=== PATIENT | male | born 1960 | race Two or more races ===

== ENCOUNTER 2021-11-02 07:10 | Emergency (ER) | payer OTHER, SELFPAY ==
--- NOTE | ~2021-11-02 | CT_ITS ---
EXAMINATION: CT CHEST, ABDOMEN AND PELVIS WITH CONTRAST CLINICAL INFORMATION: Epigastric pain COMPARISON: None. TECHNIQUE: Multidetector volumetric CT imaging of the chest, abdomen, and pelvis was performed after the administration of 100 mL of Omnipaque 300 intravenous contrast without immediate adverse reactions. Axial MIP volume rendering provided. Sagittal and coronal reformatted images were obtained. DLP: 1525 mGy-cm. FINDINGS: CHEST: LUNGS/PLEURA: Respiratory motion artifact slightly limits evaluation. No focal consolidation. No pneumothorax. Mild bibasilar atelectasis. Central airways are patent. No large pleural effusion. MEDIASTINUM: Heart is not enlarged. No pericardial effusion. Coronary calcifications are noted. Aorta is nonaneurysmal. Main pulmonary artery is not enlarged. No enlarged lymph nodes per size criteria. Multiple subcentimeter paratracheal, precarinal, and periaortic lymph nodes are noted, not enlarged per size criteria. Visualized portions of the thyroid are unremarkable. AXILLA: No lymphadenopathy. ABDOMEN AND PELVIS: LIVER, GALLBLADDER, AND BILIARY TREE: The liver is normal in size and shape. Slightly decreased hepatic attenuation suggesting hepatic steatosis with regions of focal fatty sparing adjacent to the gallbladder fossa. No focal hepatic lesion or biliary ductal dilatation is present. The gallbladder is unremarkable with no evidence of radiopaque gallstones, gallbladder wall thickening, or obvious pericholecystic inflammatory changes. PANCREAS: Unremarkable. SPLEEN: Unremarkable. ADRENAL GLANDS: Unremarkable. KIDNEYS AND URETERS: 5 mm calculus in the left renal pelvis with very slight stranding of the left proximal ureter at the level of the ureteral pelvic junction. No appreciable hydronephrosis. No right-sided nephrolithiasis or hydronephrosis. BLADDER: Unremarkable. GASTROINTESTINAL TRACT: Colonic diverticulosis without acute diverticulitis. Small hiatal hernia. The small and large bowel are unremarkable. The appendix is unremarkable. ABDOMINAL WALL: Fat filled umbilical hernia. Fat filled right inguinal hernia. LYMPH NODES: No enlarged lymph nodes per size criteria. VASCULAR: Abdominal aorta is nonaneurysmal. Atherosclerotic aspirations of the abdominal aorta and its branches. PELVIC VISCERA: Prostate measures 3.6 cm in greatest dimension with coarse calcifications within its body. OSSEOUS STRUCTURES: Osteopenia. Multilevel degenerative changes of the thoracolumbar and lumbosacral spine. No large lytic or blastic lesions are noted. Degenerative changes of the right sacroiliac joint. CT/CT abdomen pelvis w con IMPRESSION: 1. 5 mm calculus in the left renal pelvis with very slight stranding of the left proximal ureter at the level of the ureteral pelvic junction. No appreciable hydronephrosis. 2. Slightly decreased hepatic attenuation suggesting hepatic steatosis with regions of focal fatty sparing adjacent to the gallbladder fossa. 3. Colonic diverticulosis without acute diverticulitis. 4. Small hiatal hernia. 5. Osteopenia.
[2021-11-02 07:17] VITALS: BP 190/91; PULSE 90; RESP 16; TEMP 36.8; O2SAT 97; BMI 40.8
--- NOTE | 2021-11-02 07:59 | ED_ITS ---
HPI - Abdominal Pain General Chief Complaint: Abdominal Pain Stated Complaint: severe abd pain since 5am Time Seen by Provider: 11/02/21 07:59 Source: patient Mode of arrival: ambulatory Limitations: no limitations History of Present Illness HPI narrative: Patient is a 61 year old male presenting to the emergency department today with epigastric pain. Patient states that he has been having epigastric abdominal pain for the last few hours. Patient describes the pain as a burning sensation. Patient denies any dizziness, lightheadedness, nausea, vomiting, fever, chills, blurry vision, double vision, loss of vision, chest pain, difficulty breathing, shortness of breath, back pain, night sweats, pain with urination, increased urinary frequency, increased urinary urgency, blood in his urine or stool, syncope or a near syncopal episode, recent trauma or falls, bowel incontinence, bladder incontinence, bowel retention, bladder retention, or any other complaints at this time. MD elicited complaint: abdominal pain Pertinent past history: none Onset (ago): hour(s) Pain Consistency: constant and now resolved Location: epigastric Severity: mild Pain scale (0-10): 3 Quality: burning Radiation: none Migration to: no migration Exacerbating factors: nothing Relieving factors: nothing Associated symptoms: denies other symptoms Related Data Allergies Allergy/AdvReac Type Severity Reaction Status Date / Time No Known Allergies Allergy Verified 11/02/21 07:16 Review of Systems Constitutional: Reports no additional constitutional complaints, Denies chills, Denies fever(s) and Denies night sweats Eyes: Reports no additional eye complaints, Denies blurry vision, Denies change in vision, Denies diplopia, Denies eye discharge, Denies loss of vision and Denies eye pain Denies dizziness Cardiovascular: Reports no additional cardiovascular complaints, Denies chest pain, Denies lightheadedness, Denies Loss of Consciousness and Denies dyspnea Respiratory: Reports no additional respiratory complaints and Denies dyspnea Gastrointestinal: Reports no additional gastrointestinal complaints, Reports abdominal pain, Denies melena, Denies hematochezia, Denies change in bowel habits and Denies change in stool character Genitourinary: Reports no additional male genitourinary complaints, Denies hematuria, Denies oliguria, Denies difficulty urinating, Denies dysuria, Denies urinary frequency, Denies urinary hesitancy, Denies urinary incontinence and Denies urinary urgency Musculoskeletal: Reports no additional musculoskeletal complaints, Denies numbness and Denies tingling Denies dizziness, Denies loss of vision, Denies numbness and Denies tingling Psychiatric: Reports no additional psychiatric complaints Endocrine: Reports no additional endocrine complaints Hematologic/Lymphatic: Reports no additional hematologic/lymphatic complaints Allergic/Immunologic: Reports no additional allergic/immunologic complaints COUNTS INCLUDE 234 BEDS AT THE [facility] Past Medical History Attestation statement: The following information was validated with the patient. Source: old records reviewed Medical History No known health problems Social History Social History Alcohol intake: never Patient Tobacco Use Status: Never used Tobacco Physical Exam ED Vital Signs: Vital Signs - 24 hr 11/02/21 07:17 11/02/21 08:24 11/02/21 09:23 Temperature 98.2 F 99.3 F Pulse Rate 90 87 79 Respiratory Rate 16 18 18 Blood Pressure 190/91 H 181/105 H 175/91 H Pulse Oximetry 97 97 97 11/02/21 10:44 Temperature 98.3 F Pulse Rate 78 Respiratory Rate 13 Blood Pressure 181/100 H Pulse Oximetry 99 BMI result Body Mass Index 40.8 Const General: cooperative, no acute distress, alert and awake Nutritional Appearance: well nourished Orientation/consciousness: patient oriented x3 Limitations: no limitations HENMT Head: Yes normal to inspection and Yes atraumatic Ears: hearing grossly normal bilaterally and external ears normal General nose exam: Normal external nose present, no nasal discharge noted and no epistaxis Face and sinus: Yes normal facial exam, No abrasion and No laceration Mouth: Normal oral and palatal mucosa present, no drooling and no muffled voice Eyes General: appearance normal, both eyes and all related structures Periorbital: periorbital findings normal Eyelids: Yes eyelids normal Conjunctivae: conjunctivae normal Pupils: Equal, round and reactive pupils present EOM: EOMs intact bilaterally Neck Neck: Yes normal visual inspection, Yes full ROM and Yes no lymphadenopathy Chest Chest palpation & inspection: normal inspection of the chest Resp Effort & Inspection: normal respiratory effort and able to speak in complete sentences Auscultation: clear to auscultation bilaterally Cardio Rate: regular rate Rhythm: regular rhythm GI Inspection: Yes normal to inspection Palpation (GI): Soft to palpation, not firm, nontender, no guarding and not r igid Neuro General: patient oriented x3 and moves all extremities Cranial nerves: Yes Equal, round and reactive pupils present Cognition (Neuro): normal cognition Motor exam (neuro): 5/5 motor strength present throughout Sensory Exam: Normal double simultaneous stimulation for sensation Coordination: [id number] test normal Extrem General: Yes normal to inspection, Yes full ROM and Yes capillary refill normal Psych Appearance: grossly normal Mental Status: mental status grossly normal Affect: normal affect Attitude: cooperative Thought process: Normal thought process present Thought content: Normal thought content present Insight: Good insight present (Psych) MDM - Abdominal Pain MDM Narrative Medical decision making narrative: Patient is a 61 year old male presenting to the emergency department today with epigastric pain. Patient's physical exam was unremarkable. Patient's blood work showed slightly elevated LFTs however, the patient admits to being a daily drinker. Patient's urine showed blood but no acute infectious process. Patient's EKG was unremarkable. Patient's abdominal CT showed a 5mm renal calculi in the left renal pelvis. I explained my physical exam findings as well as all test results to the patient. I answered all questions asked by the patient. Patient received IV Morphine, IV Benadryl, IV protonix, and PO Maalox which he stated helped his symptoms significantly. I stressed the importance of the patient taking his medication as prescribed. I stressed the importance of the patient following up with his primary care provider and a urologist. I stressed the importance of the patient returning to the emergency department immediately if his symptoms were to worsen or if he were to develop any dizziness, shortness of breath, difficulty breathing, chest pain, blurry vision, loss of vision, nausea, vomiting, abdominal pain, fever, chills, back pain, or any other complaints. Patient verbalized agreement and understanding with this treatment plan and discharge. Differential Diagnosis Differential diagnosis: Likely abdominal pain and calculus of kidney Medical Records Attestation: I reviewed the patient's medical records. Lab Data Attestation: I reviewed the patient's lab results. Result diagrams: 11/02/21 08:24 11/02/21 09:37 Labs: Lab Results 11/02/21 11/02/21 11/02/21 Range/Units 08:24 08:24 08:54 WBC 6.9 (4.8-10.8) X10*3/uL RBC 4.90 (4.60-5.80) X10*6/uL Hgb 15.8 (14.0-18.0) g/dl Hct 45.6 (42.0-52.0) % MCV 93.1 (80.0-98.0) fL MCH 32.2 (27.0-33.0) pg MCHC 34.6 (31.0-36.0) g/dl RDW 11.7 (11.0-16.0) % Plt Count 295 (160-400) X10*3/uL MPV 9.7 (9.4-12.4) fL Immature Gran % (Auto) 0.3 (0.0-0.4) % Neut % (Auto) 59.1 (45-73) % Lymph % (Auto) 31.3 (20-40) % [place] % (Auto) 8.0 (2-11) % Eos % (Auto) 0.9 (0-4) % Baso % (Auto) 0.4 (0-2) % Lymph # (Auto) 2.2 (1.2-4.9) X10*3/uL [place] # (Auto) 0.6 (0.1-1.2) X10*3/uL Eos # (Auto) 0.1 (0.0-0.4) X10*3/uL Baso # (Auto) 0.0 (0.0-0.2) X10*3/uL Abs Immat Gran (auto) 0.02 (0.00-0.03) X10*3/uL Absolute Neuts (auto) 4.1 (2.0-8.3) x10*3/uL Absolute Nucleated RBC 0.000 (0.0-0.012) X10*3/uL Nucleated RBC % (auto) 0.0 (0.0-0.2) /100WBC Sodium (135-145) mmol/L Potassium (3.3-5.1) mmol/L Chloride (96-108) mmol/L Carbon Dioxide (22-29) mmol/L Anion Gap (12-20) BUN (9-16) mg/dL Creatinine (0.5-1.4) mg/dL Estim Creat Clear Calc Estimated GFR Random Glucose (60-115) mg/dL Calcium (8.4-10.2) mg/dL Magnesium (1.6-2.6) mg/dL Total Bilirubin (0.0-1.0) mg/dL AST (5-37) U/L ALT (0-40) U/L Alkaline Phosphatase (39-117) U/L Troponin I High Sens 7.9 (<3.5-35.0) ng/L Total Protein (6.5-8.0) g/dL Albumin (3.5-5.0) g/dL Lipase (8-78) U/L Urine Color YELLOW Urine Appearance HAZY Urine pH 7.0 (5.0-8.0) Ur Specific [place] 1.015 (1.005-1.025) Urine Protein NEG (NEG-TRACE) MG/DL Urine Glucose (UA) NEG (NEG) MG/DL Urine Ketones NEG (NEG) MG/DL Urine Blood 3+ H (NEG) Urine Nitrite NEG (NEG) Ur Leukocyte Esterase NEG (NEG) Urine RBC TNTC H (0) /HPF Urine WBC 0-2 (0-4) /HPF Ur Squamous Epith Cells NONE /LPF Urine Bacteria NONE /LPF Urine Mucus 2+ /LPF Ethyl Alcohol mg/dL 11/02/21 11/02/21 Range/Units 08:54 09:37 WBC (4.8-10.8) X10*3/uL RBC (4.60-5.80) X10*6/uL Hgb (14.0-18.0) g/dl Hct (42.0-52.0) % MCV (80.0-98.0) fL MCH (27.0-33.0) pg MCHC (31.0-36.0) g/dl RDW (11.0-16.0) % Plt Count (160-400) X10*3/uL MPV (9.4-12.4) fL Immature Gran % (Auto) (0.0-0.4) % Neut % (Auto) (45-73) % Lymph % (Auto) (20-40) % [place] % (Auto) (2-11) % Eos % (Auto) (0-4) % Baso % (Auto) (0-2) % Lymph # (Auto) (1.2-4.9) X10*3/uL [place] # (Auto) (0.1-1.2) X10*3/uL Eos # (Auto) (0.0-0.4) X10*3/uL Baso # (Auto) (0.0-0.2) X10*3/uL Abs Immat Gran (auto) (0.00-0.03) X10*3/uL Absolute Neuts (auto) (2.0-8.3) x10*3/uL Absolute Nucleated RBC (0.0-0.012) X10*3/uL Nucleated RBC % (auto) (0.0-0.2) /100WBC Sodium 138 (135-145) mmol/L Potassium 4.3 (3.3-5.1) mmol/L Chloride 102 (96-108) mmol/L Carbon Dioxide 27 (22-29) mmol/L Anion Gap 13 (12-20) BUN 13 (9-16) mg/dL Creatinine 0.88 (0.5-1.4) mg/dL Estim Creat Clear Calc 109.8 Estimated GFR > 60 Random Glucose 112 (60-115) mg/dL Calcium 9.4 (8.4-10.2) mg/dL Magnesium 2.2 (1.6-2.6) mg/dL Total Bilirubin 1.0 (0.0-1.0) mg/dL AST 45 H (5-37) U/L ALT 65 H (0-40) U/L Alkaline Phosphatase 85 (39-117) U/L Troponin I High Sens (<3.5-35.0) ng/L Total Protein 7.5 (6.5-8.0) g/dL Albumin 4.3 (3.5-5.0) g/dL Lipase 11 (8-78) U/L Urine Color Urine Appearance Urine pH (5.0-8.0) Ur Specific [place] (1.005-1.025) Urine Protein (NEG-TRACE) MG/DL Urine Glucose (UA) (NEG) MG/DL Urine Ketones (NEG) MG/DL Urine Blood (NEG) Urine Nitrite (NEG) Ur Leukocyte Esterase (NEG) Urine RBC (0) /HPF Urine WBC (0-4) /HPF Ur Squamous Epith Cells /LPF Urine Bacteria /LPF Urine Mucus /LPF Ethyl Alcohol < 10 mg/dL Imaging Data CT scan of abdomen/pelvis/chest: Attestation: I personally reviewed and interpreted this imaging study as follows: Radiologist's impression: EXAMINATION: CT CHEST, ABDOMEN AND PELVIS WITH CONTRAST CLINICAL INFORMATION: Epigastric pain? COMPARISON: None. ? TECHNIQUE: Multidetector volumetric CT imaging of the chest, abdomen, and pelvis was performed after the administration of 100 mL of Omnipaque 300 intravenous contrast without immediate adverse reactions. Axial MIP volume rendering provided. Sagittal and coronal reformatted images were obtained. DLP: 1525 mGy-cm. FINDINGS: CHEST: LUNGS/PLEURA: Respiratory motion artifact slightly limits evaluation. No focal consolidation. No pneumothorax. Mild bibasilar atelectasis. Central airways are patent. No large pleural effusion.? MEDIASTINUM: Heart is not enlarged. No pericardial effusion. Coronary calcifications are noted. Aorta is nonaneurysmal. Main pulmonary artery is not enlarged. No enlarged lymph nodes per size criteria. Multiple subcentimeter paratracheal, precarinal, and periaortic lymph nodes are noted, not enlarged per size criteria. Visualized portions of the thyroid are unremarkable.? AXILLA: No lymphadenopathy.? ABDOMEN AND PELVIS: LIVER, GALLBLADDER, AND BILIARY TREE: The liver is normal in size and shape. Slightly decreased hepatic attenuation suggesting hepatic steatosis with regions of focal fatty sparing adjacent to the gallbladder fossa. No focal hepatic lesion or biliary ductal dilatation is present. The gallbladder is unremarkable with no evidence of radiopaque gallstones, gallbladder wall thickening, or obvious pericholecystic inflammatory changes.? PANCREAS: Unremarkable.? SPLEEN: Unremarkable.? ADRENAL GLANDS: Unremarkable.? KIDNEYS AND URETERS: 5 mm calculus in the left renal pelvis with very slight stranding of the left proximal ureter at the level of the ureteral pelvic junction. No appreciable hydronephrosis. No right-sided nephrolithiasis or hydronephrosis. BLADDER: Unremarkable.? GASTROINTESTINAL TRACT: Colonic diverticulosis without acute diverticulitis. Small hiatal hernia. The small and large bowel are unremarkable. The appendix is unremarkable.? ABDOMINAL WALL: Fat filled umbilical hernia. Fat filled right inguinal hernia. LYMPH NODES: No enlarged lymph nodes per size criteria. VASCULAR: Abdominal aorta is nonaneurysmal. Atherosclerotic aspirations of the abdominal aorta and its branches. PELVIC VISCERA: Prostate measures 3.6 cm in greatest dimension with coarse calcifications within its body. OSSEOUS STRUCTURES: Osteopenia. Multilevel degenerative changes of the thoracolumbar and lumbosacral spine. No large lytic or blastic lesions are noted. Degenerative changes of the right sacroiliac joint.? CT/CT abdomen pelvis w con IMPRESSION: 1.? 5 mm calculus in the left renal pelvis with very slight stranding of the left proximal ureter at the level of the ureteral pelvic junction. No appreciable hydronephrosis. 2.? Slightly decreased hepatic attenuation suggesting hepatic steatosis with regions of focal fatty sparing adjacent to the gallbladder fossa. 3.? Colonic diverticulosis without acute diverticulitis. 4.? Small hiatal hernia. 5.? Osteopenia. Dictated By: Bear Chisholm MD Signed By: Electronically signed by Bear Chisholm MD 11/02/21 1142 ECG Data Attestation: I personally reviewed and interpreted this ECG as follows: ECG interpretation date: 11/02/21 ECG interpretation time: 08:43 Prior ECG tracings: not available for review Interpretation: Vent. Rate: 077 BPM ? ? Atrial Rate: 077 BPM P-R Int: 170 ms? QRS Dur: 162 ms QT Int: 436 ms ? ? ? P-R-T Axes: 046 -22 137 degrees QTc Int: 493 ms ? Normal sinus rhythm Left bundle branch block Abnormal ECG No previous ECGs available Dictated By: Eben Matta MD Signed By: Electronically signed by Eben Mtata MD 11/02/21 0919 Discharge Plan Discharge Clinical Impression: Renal calculi, Abdominal pain Patient Disposition: Home, Self-Care Instructions: Abdominal Pain (ED) Additional Instructions: Follow up with your primary care provider. Return to the emergency department immediately if your symptoms worsen or if you develop any dizziness, shortness of breath, difficulty breathing, chest pain, blurry vision, loss of vision, nausea, vomiting, abdominal pain, fever, chills, back pain, or any other complaints. Referrals: Paolo Martinez MD [Physician] - 2 weeks (Follow up with a urologist. ) ED Physician,Bjorn [Physician] - (Follow up with your PCP. ) Interventions: ED Discharge Assessment Last Done: 11/02/21 12:12 Discharge Date/Time: 11/02/21 12:18 Print Language: Icelandic
[2021-11-02 08:24] VITALS: BP 181/105; PULSE 87; RESP 18; TEMP 37.4; O2SAT 97
[2021-11-02 08:36] LABS: MANUAL DIFF FLAG NO
[2021-11-02 08:37] LABS: Basophils Percent Auto 0.4 % (0-2); Eosinophils Absolute Auto 0.1 X10*3/uL (0.0-0.4); Eosinophils Percent Auto 0.9 % (0-4); Hematocrit 45.6 % (42.0-52.0); Hemoglobin 15.8 g/dl (14.0-18.0); Imm Gran Abs Auto 0.02 X10*3/uL (0.00-0.03); Imm Gran Pct Auto 0.3 % (0.0-0.4); Lymphocytes Absolute Auto 2.2 X10*3/uL (1.2-4.9); Lymphocytes Percent Auto 31.3 % (20-40); Mean Corpuscular HGB Conc 34.6 g/dl (31.0-36.0); Mean Corpuscular Hemoglobin 32.2 pg (27.0-33.0); Mean Corpuscular Volume 93.1 fL (80.0-98.0); Mean Platelet Volume 9.7 fL (9.4-12.4); Monocytes Absolute Auto 0.6 X10*3/uL (0.1-1.2); Neutrophils Absolute Auto 4.1 x10*3/uL (2.0-8.3); Neutrophils Percent Auto 59.1 % (45-73); Platelet Count 295 X10*3/uL (160-400); Red Cell Distribution Width 11.7 % (11.0-16.0); White Blood Count 6.9 X10*3/uL (4.8-10.8)
[2021-11-02 08:38] LABS: Appearance Urine HAZY; Color Urine YELLOW; Glucose Urine UA NEG (NEG); Leukocyte Esterase Urine NEG (NEG); Nitrite Urine NEG (NEG); Specific Gravity - Urine 1.015 (1.005-1.025); UACC Culture Trigger NO; Urine Blood 3+ (NEG); Urine Ketones NEG (NEG); Urine Protein NEG (NEG-TRACE)
--- NOTE | 2021-11-02 08:42 | ECG_ITS ---
Test Reason : epigastric pain Blood Pressure : / mmHG Vent. Rate : 077 BPM Atrial Rate : 077 BPM P-R Int : 170 ms QRS Dur : 162 ms QT Int : 436 ms P-R-T Axes : 046 -22 137 degrees QTc Int : 493 ms Normal sinus rhythm Left bundle branch block Abnormal ECG No previous ECGs available Referred By: Nanda Chavez Electronically Signed By:REBECA DAVIS MD
--- NOTE | 2021-11-02 08:44 | PC.NURSE ---
Pt describes epigastric pain radiating to left. had a period of increased pain while driving to work which included slight diaphroesis. provider aware and ekg and ct chest ordered. pt denies CP/SOB/Nausea.
[2021-11-02 08:45] LABS: Mucus Urine 2+ /LPF; RBC Urine TNTC /HPF (0); WBC Urine 0-2 /HPF (0-4)
[2021-11-02] MEDS: Morphine Sulfate 4 MG/ML CARTRIDGE IVPUSH (09:02)
[2021-11-02] MEDS: ondansetron HCL 4 MG/2 ML VIAL IVPUSH (09:02)
--- NOTE | 2021-11-02 09:19 | PC.NURSE ---
pt felt light headed and developed rash on right arm following morphine. deep breaths and 2l NC for a few minutes and patient feels better. abd pain is diminished but still present. skin pwd. LBB rate in te 70's on monitor throughout.
[2021-11-02 09:20] LABS: Troponin-I High Sensitivity 7.9 ng/L (<3.5-35.0)
[2021-11-02 09:23] VITALS: BP 175/91; PULSE 79; RESP 18; O2SAT 97
[2021-11-02 10:01] LABS: Alanine Aminotransferase 65 U/L (0-40); Albumin Level 4.3 g/dL (3.5-5.0); Alkaline Phosphatase 85 U/L (39-117); Anion Gap 13 (12-20); Aspartate Amino Transferase 45 U/L (5-37); Blood Urea Nitrogen 13 mg/dL (9-16); Calcium 9.4 mg/dL (8.4-10.2); Carbon Dioxide 27 mmol/L (22-29); Chloride 102 mmol/L (96-108); Creatinine Clr Calc Pharmacy 109.8; Estimated Glomerular Filt Rate > 60; Glucose Random 112 mg/dL (60-115); Lipase 11 U/L (8-78); Magnesium 2.2 mg/dL (1.6-2.6); Potassium 4.3 mmol/L (3.3-5.1); Sodium 138 mmol/L (135-145); Total Protein 7.5 g/dL (6.5-8.0)
[2021-11-02] MEDS: iohexoL 350 MG/ML 100 ML INFUS..BTL IV (10:28)
[2021-11-02 10:41] LABS: Ethanol < 10 mg/dL
[2021-11-02 10:44] VITALS: BP 181/100; PULSE 78; RESP 13; TEMP 36.8; O2SAT 99
[2021-11-02] MEDS: Pantoprazole Sodium 40 MG/10 ML VIAL IVPUSH (10:53)
[2021-11-02] MEDS: Magnesium Hydrox/Alum Hydrox 30 ML ORAL.SUSP 15 ML PO (10:53)
== END 2021-11-02 12:18 | disposition home or self-care (01) ==
PROVIDERS: Physician Assistant Medical; Emergency Provider Emergency Medicine Emergency Medical Services
DX: N20.0 Calculus of kidney (principal); R10.13 Epigastric pain
CPT/HCPCS: 36415; 71260; 74177; 80053; 81001; 82077; 83690; 83735; 84484; 85025; 93005; 96365; 96375; 99284; J1200; J2270; J2405; Q9967

== ENCOUNTER 2021-11-13 09:32 | Inpatient (IN) | payer OTHER, SELFPAY ==
[2021-11-13] VITALS (9 sets, daily range): BP systolic 119–225; BP diastolic 73–127; PULSE 62–93; RESP 14–18; TEMP 36.1–37.1; O2SAT 95–97; BMI 40.7
--- NOTE | ~2021-11-13 | US_ITS ---
EXAMINATION: ULTRASOUND LEFT KIDNEY CLINICAL INFORMATION: Left flank pain with history of stones. COMPARISON: CT abdomen and pelvis 11/02/2021 TECHNIQUE: Limited ultrasound imaging of left kidney is performed. FINDINGS: Limited exam as patient is unable to hold still. The left kidney measures 12.8 x 7.1 x 4.9 cm. No echogenic stones, cysts or solid lesion seen. There is mild hydronephrosis. Limited imaging through the bladder reveals normal left ureteral jet. Right ureteral jet is not seen. US/US renal LT IMPRESSION: Mild left renal hydronephrosis. No echogenic stones, cysts or solid lesion.
--- NOTE | 2021-11-13 10:28 | ED_ITS ---
HPI - Abdominal Pain General Chief Complaint: General Medical Stated Complaint: Kidney stone Time Seen by Provider: 11/13/21 10:28 Source: patient Mode of arrival: ambulatory Limitations: no limitations History of Present Illness HPI narrative: 61-year-old male with known kidney stones presents to the ER with severe 10/10 left-sided flank pain, and severe nausea and vomiting that restarted again this morning. He was seen here for the same on 11/02 - diagnosed with a 5mm stone in the left renal pelvis with very slight stranding of the left ureteral pelvic junction. He was not discharged with any medications and instructed to follow- up with Dr. Martinez in 2 weeks. Patient reports 4 hours after discharge he had recurrent left-sided flank pain. The pain has been coming and going in waves but not as bad as it has been this morning. He started vomiting again this morning so came back to the ER for further evaluation. He denies any dysuria, hematuria, fever, chills. He states the pain is severe in his left flank radiates down the left lower quadrant and left testicle. He denies history of kidney stones prior to this MD elicited complaint: flank pain Pertinent past history: kidney stones Onset (ago): day(s) Pain Consistency: intermittent Location: L flank Severity: severe Pain scale (0-10): 10 Quality: stabbing and sharp Radiation: LLQ Migration to: other (Left testicle) Exacerbating factors: movement Relieving factors: nothing Context: history of similar episodes Associated symptoms: nausea and vomiting Related Data Previous Rx's Medication Instructions Recorded ibuprofen 600 mg tablet 600 mg PO Q8H PRN #20 tab 11/08/21 Allergies Allergy/AdvReac Type Severity Reaction Status Date / Time No Known Allergies Allergy Verified 11/08/21 16:50 Review of Systems Review of Systems Constitutional: No Fever, No Chills ENT/Mouth: No sore throat, No Rhinorrhea, No Swallowing Difficulty Eyes: No Eye Pain, No Swelling, No Redness Cardiovascular: No Chest Pain, No SOB, No Orthopnea, No Edema Respiratory: No Cough, No Sputum, No Wheezing, No dyspnea Gastrointestinal: + Nausea, + Vomiting, No Diarrhea, + abdominal Pain, No Hematochezia, No Melena Genitourinary: No Dysuria, + Urinary Frequency, No Hematuria Musculoskeletal: No joint pain, No Myalgias Skin: No Skin Lesions, No rash Neuro: No Weakness, No Numbness, No Dizziness, No Headache Psych: + Anxiety/Panic, No Depression Heme/Lymph: No Bruising, No Lymphadenopathy Endocrine: No Polyuria, No Polydipsia [facility] Past Medical History Medical History (Updated 11/13/21 @ 13:48 by Jus Smith MD) HTN (hypertension) Kidney stone Steatohepatitis Family History Family History Mother No problems noted. Father AD (Alzheimer's disease) High blood pressure Social History Social History Housing: Apartment Alcohol intake: current Alcohol intake frequency: 3 or more drinks per day Patient Tobacco Use Status: Former Tobacco user Second Hand Smoke Exposure: Yes Advance Directives: No Advance Directives Information Provided: No service: No Current occupational status: employed Cognitive needs: No Hearing needs: No Vision needs: No Physical Exam ED Vital Signs: Vital Signs - 24 hr 11/13/21 10:02 11/13/21 11:05 11/13/21 11:07 Temperature 98.8 F 98.3 F Pulse Rate 93 62 Respiratory Rate 18 14 16 Blood Pressure 225/118 H 119/76 Pulse Oximetry 97 97 11/13/21 11:14 11/13/21 13:04 Temperature Pulse Rate 80 Respiratory Rate 18 14 Blood Pressure 176/127 H Pulse Oximetry 96 BMI result Body Mass Index 40.7 Appearance: Alert. Oriented X3. Appears uncomfortable, writhing on the stretcher Eyes: Pupils equal, round and reactive to light. ENT: Pharynx normal. Neck: Normal inspection. Neck supple. CVS: Normal heart rate and rhythm. Pulses normal. Respiratory: No respiratory distress. Breath sounds normal. Abdomen: Obese, Soft with left lower quadrant tenderness, left-sided CVA tenderness, normal BS x4 Skin: Skin warm and dry. Normal skin color. Normal skin turgor. No rashes. Extremities: No lower extremity edema. Neuro: Oriented X 3. Grossly normal, nonfocal Course Course Course Narrative: 61 y/o male with a recently diagnosed 5mm right sided proximal kidney stone presenting back with worsening pain, nausea and vomiting. On arrival to the ER he is severely hypertensive 225/118. Will plan to treat his pain with IV morphine, nausea with IV Zofran, reassess renal function, urinalysis and will get left-sided renal ultrasound to assess for development of possible hydronephrosis. At the time of CT scan on the there was no hydronephrosis present. Reevaluation(s) Reevaluation #1: Labs show no leukocytosis. Renal function is normal. Will give a dose of IV Toradol as well. Urinalysis still pending, UA from the showed no evidence of infection. Given patient's ongoing pain for the last 10 days & recurrence of severe symptoms today will plan for admission for urologic intervention. Dr. Martinez aware. Consultations Consultation #1: Dr. Martinez Urology MDM - Abdominal Pain Lab Data Result diagrams: 11/13/21 10:55 11/13/21 11:13 Labs: Lab Results 11/13/21 11/13/21 11/13/21 Range/Units 10:55 10:55 11:13 WBC 9.8 (4.8-10.8) X10*3/uL RBC 4.91 (4.60-5.80) X10*6/uL Hgb 15.6 (14.0-18.0) g/dl Hct 45.0 (42.0-52.0) % MCV 91.6 (80.0-98.0) fL MCH 31.8 (27.0-33.0) pg MCHC 34.7 (31.0-36.0) g/dl RDW 11.5 (11.0-16.0) % Plt Count 312 (160-400) X10*3/uL MPV 9.4 (9.4-12.4) fL Immature Gran % (Auto) 0.4 (0.0-0.4) % Neut % (Auto) 67.1 (45-73) % Lymph % (Auto) 22.3 (20-40) % [place] % (Auto) 9.3 (2-11) % Eos % (Auto) 0.5 (0-4) % Baso % (Auto) 0.4 (0-2) % Lymph # (Auto) 2.2 (1.2-4.9) X10*3/uL [place] # (Auto) 0.9 (0.1-1.2) X10*3/uL Eos # (Auto) 0.1 (0.0-0.4) X10*3/uL Baso # (Auto) 0.0 (0.0-0.2) X10*3/uL Abs Immat Gran (auto) 0.04 H (0.00-0.03) X10*3/uL Absolute Neuts (auto) 6.6 (2.0-8.3) x10*3/uL Absolute Nucleated RBC 0.000 (0.0-0.012) X10*3/uL Nucleated RBC % (auto) 0.0 (0.0-0.2) /100WBC Sodium 136 (135-145) mmol/L Potassium 3.8 (3.3-5.1) mmol/L Chloride 103 (96-108) mmol/L Carbon Dioxide 22 (22-29) mmol/L Anion Gap 15 (12-20) BUN 13 (9-16) mg/dL Creatinine 1.08 (0.5-1.4) mg/dL Estim Creat Clear Calc 89.3 Estimated GFR > 60 Random Glucose 124 H (60-115) mg/dL Calcium 9.9 (8.4-10.2) mg/dL Magnesium 2.1 (1.6-2.6) mg/dL Total Bilirubin 0.9 (0.0-1.0) mg/dL Direct Bilirubin 0.4 (0.0-0.5) mg/dL AST 39 H (5-37) U/L ALT 63 H (0-40) U/L Alkaline Phosphatase 85 (39-117) U/L Total Protein 7.7 (6.5-8.0) g/dL Albumin 4.4 (3.5-5.0) g/dL Urine Color Urine Appearance Urine pH (5.0-8.0) Ur Specific [place] (1.005-1.025) Urine Protein (NEG-TRACE) MG/DL Urine Glucose (UA) (NEG) MG/DL Urine Ketones (NEG) MG/DL Urine Blood (NEG) Urine Nitrite (NEG) Ur Leukocyte Esterase (NEG) Urine RBC (0) /HPF Urine WBC (0-4) /HPF Ur Squamous Epith Cells /LPF Urine Bacteria /LPF COVID-19 (ANTHONY) Negative (Negative) COVID-19 Clin Com See Note 11/13/21 Range/Units 13:15 WBC (4.8-10.8) X10*3/uL RBC (4.60-5.80) X10*6/uL Hgb (14.0-18.0) g/dl Hct (42.0-52.0) % MCV (80.0-98.0) fL MCH (27.0-33.0) pg MCHC (31.0-36.0) g/dl RDW (11.0-16.0) % Plt Count (160-400) X10*3/uL MPV (9.4-12.4) fL Immature Gran % (Auto) (0.0-0.4) % Neut % (Auto) (45-73) % Lymph % (Auto) (20-40) % [place] % (Auto) (2-11) % Eos % (Auto) (0-4) % Baso % (Auto) (0-2) % Lymph # (Auto) (1.2-4.9) X10*3/uL [place] # (Auto) (0.1-1.2) X10*3/uL Eos # (Auto) (0.0-0.4) X10*3/uL Baso # (Auto) (0.0-0.2) X10*3/uL Abs Immat Gran (auto) (0.00-0.03) X10*3/uL Absolute Neuts (auto) (2.0-8.3) x10*3/uL Absolute Nucleated RBC (0.0-0.012) X10*3/uL Nucleated RBC % (auto) (0.0-0.2) /100WBC Sodium (135-145) mmol/L Potassium (3.3-5.1) mmol/L Chloride (96-108) mmol/L Carbon Dioxide (22-29) mmol/L Anion Gap (12-20) BUN (9-16) mg/dL Creatinine (0.5-1.4) mg/dL Estim Creat Clear Calc Estimated GFR Random Glucose (60-115) mg/dL Calcium (8.4-10.2) mg/dL Magnesium (1.6-2.6) mg/dL Total Bilirubin (0.0-1.0) mg/dL Direct Bilirubin (0.0-0.5) mg/dL AST (5-37) U/L ALT (0-40) U/L Alkaline Phosphatase (39-117) U/L Total Protein (6.5-8.0) g/dL Albumin (3.5-5.0) g/dL Urine Color YELLOW Urine Appearance CLEAR Urine pH 7.0 (5.0-8.0) Ur Specific [place] 1.010 (1.005-1.025) Urine Protein NEG (NEG-TRACE) MG/DL Urine Glucose (UA) NEG (NEG) MG/DL Urine Ketones NEG (NEG) MG/DL Urine Blood 2+ H (NEG) Urine Nitrite NEG (NEG) Ur Leukocyte Esterase NEG (NEG) Urine RBC 10-14 H (0) /HPF Urine WBC 0 (0-4) /HPF Ur Squamous Epith Cells NONE /LPF Urine Bacteria NONE /LPF COVID-19 (ANTHONY) (Negative) COVID-19 Clin Com Critical Care Time Critical Care Time Critical Care Time: Yes Total Critical Care Time: 35 Attestation: I have personally provided critical care time exclusive of time spent on separately billable procedures. Time includes review of lab data, radiology results, discussion with consultants, and monitoring for potential decompen sation. Intervention performed as documented. Discharge Plan Discharge Clinical Impression: Hydronephrosis with renal and ureteral calculus obstruction Patient Disposition: Admitted As Inpatient
[2021-11-13 11:00] LABS: MANUAL DIFF FLAG NO
[2021-11-13 11:04] LABS: Basophils Percent Auto 0.4 % (0-2); Eosinophils Absolute Auto 0.1 X10*3/uL (0.0-0.4); Eosinophils Percent Auto 0.5 % (0-4); Hemoglobin 15.6 g/dl (14.0-18.0); Imm Gran Abs Auto 0.04 X10*3/uL (0.00-0.03); Imm Gran Pct Auto 0.4 % (0.0-0.4); Lymphocytes Absolute Auto 2.2 X10*3/uL (1.2-4.9); Lymphocytes Percent Auto 22.3 % (20-40); Mean Corpuscular HGB Conc 34.7 g/dl (31.0-36.0); Mean Corpuscular Hemoglobin 31.8 pg (27.0-33.0); Mean Corpuscular Volume 91.6 fL (80.0-98.0); Mean Platelet Volume 9.4 fL (9.4-12.4); Monocytes Absolute Auto 0.9 X10*3/uL (0.1-1.2); Monocytes Percent Auto 9.3 % (2-11); Neutrophils Absolute Auto 6.6 x10*3/uL (2.0-8.3); Neutrophils Percent Auto 67.1 % (45-73); Platelet Count 312 X10*3/uL (160-400); Red Blood Count 4.91 X10*6/uL (4.60-5.80); Red Cell Distribution Width 11.5 % (11.0-16.0); White Blood Count 9.8 X10*3/uL (4.8-10.8)
[2021-11-13] MEDS: ondansetron HCL 4 MG/2 ML VIAL IVPUSH (11:05)
[2021-11-13] MEDS: Morphine Sulfate 4 MG/ML CARTRIDGE IVPUSH ×2 (11:05→13:04)
[2021-11-13] MEDS: 0.9 % Sodium Chloride 1,000 ML 999 ML IVCONT ×2 (11:06→13:09)
[2021-11-13 11:21] LABS: COVID-19 Test Negative (Negative)
[2021-11-13 11:40] LABS: Alanine Aminotransferase 63 U/L (0-40); Albumin Level 4.4 g/dL (3.5-5.0); Alkaline Phosphatase 85 U/L (39-117); Anion Gap 15 (12-20); Aspartate Amino Transferase 39 U/L (5-37); Bilirubin Direct 0.4 mg/dL (0.0-0.5); Bilirubin Total 0.9 mg/dL (0.0-1.0); Blood Urea Nitrogen 13 mg/dL (9-16); Calcium 9.9 mg/dL (8.4-10.2); Carbon Dioxide 22 mmol/L (22-29); Chloride 103 mmol/L (96-108); Creatinine Clr Calc Pharmacy 89.3; Estimated Glomerular Filt Rate > 60; Glucose Random 124 mg/dL (60-115); Magnesium 2.1 mg/dL (1.6-2.6); Potassium 3.8 mmol/L (3.3-5.1); Sodium 136 mmol/L (135-145); Total Protein 7.7 g/dL (6.5-8.0)
[2021-11-13] MEDS: Ketorolac Tromethamine 30 MG/ML VIAL IVPUSH (11:42)
[2021-11-13 13:32] LABS: Appearance Urine CLEAR; Color Urine YELLOW; Glucose Urine UA NEG (NEG); Leukocyte Esterase Urine NEG (NEG); Nitrite Urine NEG (NEG); UACC Culture Trigger NO; Urine Blood 2+ (NEG); Urine Ketones NEG (NEG); Urine Protein NEG (NEG-TRACE)
[2021-11-13 13:43] LABS: WBC Urine 0 /HPF (0-4)
--- NOTE | 2021-11-13 13:50 | PM.IMHP ---
History of Present Illness Date of Service: 11/13/21 Chief Complaint: Left flank pain 61-year-old male presented with left flank plain. Patient has had ongoing left flank pain 10 out of 10 pain radiating to left testicle since 11/02/2021 when he presented to the ED and was diagnosed with a 5 mm left UPJ stone. at that time he was given pain meds and plan was to follow up outpatient with Urology. Patient's pain never fully went away but was tolerable until day of presentation when it became 10/10 again. patient denies any fevers or chills. Denies history of stones. In ED ultrasound showed mild left renal hydronephrosis, no echogenic stones seen. Review of Systems Review of Systems: Constitutional: Denies fever, denies Chills Eyes: denies blurry vision ENT: denies sore throat CVS: denies chest pain Respiratory: Denies dyspnea GI: no abdominal pain : falnk pain MSK: denies neck pain Skin: denies rash Neuro: denies specific motor weakness Psych: denies suicidal ideation Endocrine: denies heat/cold intolerance Hematologic: denies easy bleeding Allergy: denies hives Cardiovascular: Cardiovascular: Reports no additional cardiovascular complaints Respiratory: Respiratory: Reports no additional respiratory complaints [facility] Medical History (Updated 11/13/21 @ 13:48 by Jus Smith MD) HTN (hypertension) Kidney stone Steatohepatitis Family History Mother No problems noted. Father AD (Alzheimer's disease) High blood pressure Social History Housing: Apartment Alcohol intake: current Alcohol intake frequency: 3 or more drinks per day Patient Tobacco Use Status: Former Tobacco user Second Hand Smoke Exposure: Yes Advance Directives: No Advance Directives Information Provided: No service: No Current occupational status: employed Cognitive needs: No Hearing needs: No Vision needs: No Meds Allergies Allergy/AdvReac Type Severity Reaction Status Date / Time No Known Allergies Allergy Verified 11/08/21 16:50 Active Medications: Current Medications Pharmacy Consult (Consult Rx Perform Med Rec) 1 each MISCELLANE ONCE PRN PRN Reason: Consult order Physical Exam Vital Signs and Narrative: Vital Signs: Last Vital Signs Temp 98.3 F 04/18/22 11:07 Pulse 80 11/13/21 11:14 Resp 14 11/13/21 13:04 BP 176/127 H 11/13/21 11:14 Pulse Ox 96 11/13/21 11:14 BMI result Body Mass Index 40.7 General: no acute distress (after opiates) HEENT: atraumatic Neck: normal to visual inspection CVS: S1, S2, RRR Resp: CTA bilateral Chest: non tender GI: soft, non tender, non distended : left flank tenderness Skin: no rashes Extremities: no edema Neuro: Oriented X3, grossly intact Psych: cooperative Results Labs CBC and Chem 7: 11/13/21 10:55 11/13/21 11:13 Labs: Laboratory Results - last 24 hr 11/13/21 11/13/21 11/13/21 10:55 10:55 11:13 MCV 91.6 MCH 31.8 MCHC 34.7 RDW 11.5 Plt Count 312 MPV 9.4 Immature Gran % (Auto) 0.4 Neut % (Auto) 67.1 Lymph % (Auto) 22.3 [place] % (Auto) 9.3 Eos % (Auto) 0.5 Baso % (Auto) 0.4 Lymph # (Auto) 2.2 [place] # (Auto) 0.9 Eos # (Auto) 0.1 Baso # (Auto) 0.0 Abs Immat Gran (auto) 0.04 H Absolute Neuts (auto) 6.6 Absolute Nucleated RBC 0.000 Nucleated RBC % (auto) 0.0 Anion Gap 15 Estim Creat Clear Calc 89.3 Estimated GFR > 60 Random Glucose 124 H Calcium 9.9 Magnesium 2.1 Total Bilirubin 0.9 Direct Bilirubin 0.4 AST 39 H ALT 63 H Alkaline Phosphatase 85 Total Protein 7.7 Albumin 4.4 Urine Color Urine Appearance Urine pH Ur Specific [place] Urine Protein Urine Glucose (UA) Urine Ketones Urine Blood Urine Nitrite Ur Leukocyte Esterase Urine RBC Urine WBC Ur Squamous Epith Cells Urine Bacteria COVID-19 (ANTHONY) Negative COVID-19 Clin Com See Note 11/13/21 13:15 MCV MCH MCHC RDW Plt Count MPV Immature Gran % (Auto) Neut % (Auto) Lymph % (Auto) [place] % (Auto) Eos % (Auto) Baso % (Auto) Lymph # (Auto) [place] # (Auto) Eos # (Auto) Baso # (Auto) Abs Immat Gran (auto) Absolute Neuts (auto) Absolute Nucleated RBC Nucleated RBC % (auto) Anion Gap Estim Creat Clear Calc Estimated GFR Random Glucose Calcium Magnesium Total Bilirubin Direct Bilirubin AST ALT Alkaline Phosphatase Total Protein Albumin Urine Color YELLOW Urine Appearance CLEAR Urine pH 7.0 Ur Specific [place] 1.010 Urine Protein NEG Urine Glucose (UA) NEG Urine Ketones NEG Urine Blood 2+ H Urine Nitrite NEG Ur Leukocyte Esterase NEG Urine RBC 10-14 H Urine WBC 0 Ur Squamous Epith Cells NONE Urine Bacteria NONE COVID-19 (ANTHONY) COVID-19 Clin Com Imaging Radiologist's Impressions: Impressions Renal Ultrasound 11/13/21 11:39 IMPRESSION: Mild left renal hydronephrosis. No echogenic stones, cysts or solid lesion. Assessment and Plan (1) Hydronephrosis with renal and ureteral calculus obstruction: Status: Acute Plan 61-year-old male presented with left flank pain with known left ureteral stone left ureteral stone with hydronephrosis and renal colic IV fluids, pain control, urology eval, NPO after midnight for possible intervention hypertension uncontrolled, not on meds at home, likely partially due to pain will control pain 1st and then monitor to see of medications needed. Morbid obesity weight loss steatohepatitis likely due to alcohol dependence suspect component of NAFLD rule out history of viral hepatitis check lipids and a1c EMR mentioned patient reported history of HCV though on further discussion with patient sounds more like hep A dvt prophylaxis - lovenox full code Quality Stroke Does the patient have a stroke diagnosis?: No VTE Prior VTE?: No VTE Risk Level:: Medical - moderate - high VTE Device Contraindication: Treatment Not Indicated VTE Drug Contraindication: N/A - Med Ordered
--- NOTE | 2021-11-13 14:11 | PHA.MEDREC ---
Pharmacy Consult ? Medication Reconciliation Pharmacy has completed the medication reconciliation. PT SAYS HE DOES NOT TAKE ANY MEDS
[2021-11-13] MEDS: cefTRIAXone sodium 1 GM in 0.9 % Sodium Chloride 50 ML IV (15:45)
[2021-11-13] MEDS: HYDROmorphone HCl 0.5 MG/0.5 ML SYRINGE IVPUSH ×3 (16:44→20:41)
[2021-11-13] MEDS: Enoxaparin Sodium 40 MG/0.4 ML SYRINGE SUBCUT (16:46)
[2021-11-13] MEDS: Lactated Ringers 1,000 ML 80 ML IVCONT (16:51)
[2021-11-13] MEDS: 0.9 % Sodium Chloride Flush 3 ML SYRINGE IVFLUSH (16:51)
[2021-11-14 03:04] VITALS: BP 163/79; PULSE 59; RESP 16; TEMP 36.4; O2SAT 97
[2021-11-14] MEDS: Lactated Ringers 1,000 ML 80 ML IVCONT (05:30)
[2021-11-14 06:10] LABS: Hematocrit 42.4 % (42.0-52.0); Hemoglobin 14.2 g/dl (14.0-18.0); Mean Corpuscular HGB Conc 33.5 g/dl (31.0-36.0); Mean Corpuscular Hemoglobin 31.5 pg (27.0-33.0); Mean Platelet Volume 9.5 fL (9.4-12.4); Platelet Count 274 X10*3/uL (160-400); Red Blood Count 4.51 X10*6/uL (4.60-5.80); Red Cell Distribution Width 11.6 % (11.0-16.0); White Blood Count 6.2 X10*3/uL (4.8-10.8)
[2021-11-14 06:34] LABS: Anion Gap 12 (12-20); Blood Urea Nitrogen 9 mg/dL (9-16); Calcium 9.2 mg/dL (8.4-10.2); Carbon Dioxide 28 mmol/L (22-29); Chloride 102 mmol/L (96-108); Cholesterol 193 mg/dL; Creatinine Clr Calc Pharmacy 112.1; Estimated Glomerular Filt Rate > 60; Glucose Fasting 106 mg/dL (60-99); HDL Cholesterol 51 mg/dL; LDL Cholesterol Calculated 121 mg/dl; Potassium 4.3 mmol/L (3.3-5.1); Sodium 138 mmol/L (135-145); Triglycerides 109 mg/dL
[2021-11-14 07:23] VITALS: BP 156/79; PULSE 65; RESP 17; TEMP 36; O2SAT 94
[2021-11-14 07:46] LABS: Glucose, Whole Blood 124 mg/dL (60-115)
[2021-11-14 07:56] LABS: Estimated Average Glucose 94 mg/dL; Hemoglobin A1c % 4.9 %
--- NOTE | 2021-11-14 10:03 | HO.PM.IMPN ---
Subjective Subjective Date of Service: 11/14/21 Interval History: cc: left flank pain interval history: resolved Cardiovascular Cardiovascular: Reports no additional cardiovascular complaints Respiratory Respiratory: Reports no additional respiratory complaints Physical Exam Vital Signs: Vital Signs: Last Vital Signs Temp 96.8 F 11/14/21 07:23 Pulse 65 11/14/21 07:23 Resp 17 11/14/21 07:23 BP 156/79 H 11/14/21 07:23 Pulse Ox 94 11/14/21 07:23 BMI result Body Mass Index 40.7 General: AO X 3, no acute distress Resp: CTA bilateral, no accessory muscles used CVS: S1,S2,RRR GI: soft, non tender, non distended Neuro: motor grossly intact, alert Psych: appropriate affect, appropriate insight Objective Data Active Medications Acetaminophen (Acetaminophen 325 Mg Tablet) 650 mg PO Q6H PRN PRN Reason: Pain, Mild (Pain Scale 1-3) Enoxaparin Sodium (Enoxaparin Sodium 40 Mg/0.4 Ml Syringe) 40 mg SUBCUT Q24H [facility] Last Admin: 11/13/21 16:46 Dose: 40 mg Documented by: MARIA ELENA Hydromorphone HCl (Hydromorphone Hcl 0.5 Mg/0.5 Ml Syringe) 0.5 mg IVPUSH Q3H PRN; Protocol PRN Reason: moderate pain Last Admin: 11/13/21 20:41 Dose: 0.5 mg Documented by: JUSTIN Ceftriaxone Sodium 1 gm/ (Sodium Chloride) 50 mls @ 100 mls/hr IV Q24H [facility] Last Infusion: 11/13/21 16:55 Dose: 0 mls/hr Documented by: MARIA ELENA Lactated Ringer's (Lr) 1,000 mls @ 80 mls/hr IVCONT .[id number] [facility] Last Admin: 11/14/21 05:30 Dose: 80 mls/hr Documented by: JUSTIN Morphine Sulfate (Morphine Sulfate 4 Mg/Ml Cartridge) 4 mg IVPUSH Q4H PRN; Protocol PRN Reason: Pain, Severe (Pain Scale 7-10) Pharmacy Consult (Consult Rx Perform Med Rec) 1 each MISCELLANE ONCE PRN PRN Reason: Consult order Sodium Chloride (0.9 % Sodium Chloride Flush 3 Ml Syringe) 3 ml IVFLUSH QSHIFT [facility] Last Admin: 11/14/21 08:42 Dose: Not Given Documented by: RANJIT Non-Admin Reason: IV Running Labs CBC & Chem 7: 11/14/21 05:44 11/14/21 05:44 Labs: Laboratory Results - last 24 hr 11/13/21 11/13/21 11/13/21 10:55 10:55 11:13 MCV 91.6 MCH 31.8 MCHC 34.7 RDW 11.5 Plt Count 312 MPV 9.4 Immature Gran % (Auto) 0.4 Neut % (Auto) 67.1 Lymph % (Auto) 22.3 [place] % (Auto) 9.3 Eos % (Auto) 0.5 Baso % (Auto) 0.4 Lymph # (Auto) 2.2 [place] # (Auto) 0.9 Eos # (Auto) 0.1 Baso # (Auto) 0.0 Abs Immat Gran (auto) 0.04 H Absolute Neuts (auto) 6.6 Absolute Nucleated RBC 0.000 Nucleated RBC % (auto) 0.0 Anion Gap 15 Estim Creat Clear Calc 89.3 Estimated GFR > 60 POC Glucose Random Glucose 124 H Fasting Glucose Estimat Average Glucose Hemoglobin A1c % Calcium 9.9 Magnesium 2.1 Total Bilirubin 0.9 Direct Bilirubin 0.4 AST 39 H ALT 63 H Alkaline Phosphatase 85 Total Protein 7.7 Albumin 4.4 Triglycerides Cholesterol LDL Cholesterol, Calc HDL Cholesterol Urine Color Urine Appearance Urine pH Ur Specific [place] Urine Protein Urine Glucose (UA) Urine Ketones Urine Blood Urine Nitrite Ur Leukocyte Esterase Urine RBC Urine WBC Ur Squamous Epith Cells Urine Bacteria COVID-19 (ANTHONY) Negative COVID-19 Clin Com See Note 11/13/21 11/14/21 11/14/21 13:15 05:44 05:44 MCV 94.0 MCH 31.5 MCHC 33.5 RDW 11.6 Plt Count 274 MPV 9.5 Immature Gran % (Auto) Neut % (Auto) Lymph % (Auto) [place] % (Auto) Eos % (Auto) Baso % (Auto) Lymph # (Auto) [place] # (Auto) Eos # (Auto) Baso # (Auto) Abs Immat Gran (auto) Absolute Neuts (auto) Absolute Nucleated RBC 0.000 Nucleated RBC % (auto) 0.0 Anion Gap 12 Estim Creat Clear Calc 112.1 Estimated GFR > 60 POC Glucose Random Glucose Fasting Glucose 106 H Estimat Average Glucose Hemoglobin A1c % Calcium 9.2 D Magnesium Total Bilirubin Direct Bilirubin AST ALT Alkaline Phosphatase Total Protein Albumin Triglycerides 109 Cholesterol 193 LDL Cholesterol, Calc 121 HDL Cholesterol 51 Urine Color YELLOW Urine Appearance CLEAR Urine pH 7.0 Ur Specific [place] 1.010 Urine Protein NEG Urine Glucose (UA) NEG Urine Ketones NEG Urine Blood 2+ H Urine Nitrite NEG Ur Leukocyte Esterase NEG Urine RBC 10-14 H Urine WBC 0 Ur Squamous Epith Cells NONE Urine Bacteria NONE COVID-19 (ANTHONY) COVID-19 Clin Com 11/14/21 11/14/21 05:44 07:27 MCV MCH MCHC RDW Plt Count MPV Immature Gran % (Auto) Neut % (Auto) Lymph % (Auto) [place] % (Auto) Eos % (Auto) Baso % (Auto) Lymph # (Auto) [place] # (Auto) Eos # (Auto) Baso # (Auto) Abs Immat Gran (auto) Absolute Neuts (auto) Absolute Nucleated RBC Nucleated RBC % (auto) Anion Gap Estim Creat Clear Calc Estimated GFR POC Glucose 124 H Random Glucose Fasting Glucose Estimat Average Glucose 94 Hemoglobin A1c % 4.9 Calcium Magnesium Total Bilirubin Direct Bilirubin AST ALT Alkaline Phosphatase Total Protein Albumin Triglycerides Cholesterol LDL Cholesterol, Calc HDL Cholesterol Urine Color Urine Appearance Urine pH Ur Specific [place] Urine Protein Urine Glucose (UA) Urine Ketones Urine Blood Urine Nitrite Ur Leukocyte Esterase Urine RBC Urine WBC Ur Squamous Epith Cells Urine Bacteria COVID-19 (ANTHONY) COVID-19 Clin Com Assessment and Plan (1) Steatohepatitis: Status: Acute Plan 61-year-old male presented with left flank pain with known left ureteral stone ?left ureteral stone with hydronephrosis and renal colic much improved, ? passed stone continue ?IV fluids, pain control, follow up ?hypertension ?uncontrolled, not on meds at home improving with pain control, monitor ? Morbid obesity ?weight loss ?steatohepatitis ?likely due to alcohol dependence suspect component of NAFLD rule out history of viral hepatitis lipids and a1c unremarkable EMR mentioned patient reported history of HCV though on further discussion with patient sounds more like hep A dvt prophylaxis - lovenox full code reason for continued hospitalization: awaiting eval Quality Stroke Does the patient have a stroke diagnosis?: No VTE Prior VTE?: No VTE Risk Level:: Medical - moderate - high VTE Device Contraindication: Treatment Not Indicated VTE Drug Contraindication: N/A - Med Ordered
--- NOTE | 2021-11-14 13:41 | PM.DS ---
DS: Providers Provider Date of Service: 11/14/21 Date of admission: 11/13/21 15:45 Primary care physician: Abiola Wilkins CNP Consults: 11/13/21 13:48 Consult to Urology Routine Consulting Provider: Paolo Martinez Reason for consultation: stone DS: Diagnosis Discharge Diagnosis (1) Steatohepatitis: Status: Acute DS: Summary Hospital Course Hospital Course: from initial hpi: Chief Complaint: ? Left flank? pain ?61-year-old male presented with left flank plain.? Patient has had ongoing left flank pain 10 out of 10 pain radiating to left testicle since 11/02/2021 when he presented to the ED and was diagnosed with a 5 mm left UPJ stone.? at that time he was given pain meds and plan was to follow up outpatient with Urology.? Patient's pain never fully went away but was tolerable until day of presentation when it became 10/10 again.? patient denies any fevers or chills.? Denies history of stones.? In ED ultrasound showed mild left renal hydronephrosis, no echogenic stones seen. hospital course: Patient was admitted for left ureteral stone with renal colic and hydronephrosis. Patient was given IV fluids and pain medication. Patient's pain was unrelieved Likely due to passing stone. He was seen by Urology recommended no further workup. Patient was noted to be hypertensive which was uncontrolled. It became better controlled with pain control, is not on medications at home, this should be followed in may need to start with primary care doctor. Patient is encouraged to continue to lose weight 1st morbid obesity. Patient has steatohepatitis, likely mostly due to alcohol dependence, possibly some element of nonalcoholic fatty liver, though patient's lipids and A1c were unremarkable. We did screen for viral hepatitis and results are still pending and should be followed up. Patient is feeling better will be discharged home. He is encouraged to lose weight, discontinue alcohol, drinking enough fluids to produce 2 L of urine per day. Time Spent with Patient Time attestation: Total time spent providing and/or coordinating discharge services: Discharge coordination time: Greater than 30 minutes Quality: Safe Use of Opioids Does Pt have an Active Cancer Diagnosis on the Problem List?: No Quality: Stroke Does the patient have a stroke diagnosis?: No Physical Exam Vital Signs: Vital Signs: Last Vital Signs Temp 96.8 F 11/14/21 07:23 Pulse 65 11/14/21 07:23 Resp 17 11/14/21 07:23 BP 156/79 H 11/14/21 07:23 Pulse Ox 94 11/14/21 07:23 BMI result Body Mass Index 40.7 General: AO X 3, no acute distress Resp: CTA bilateral, no accessory muscles used CVS: S1,S2,RRR GI: soft, non tender, non distended Neuro: motor grossly intact, alert Psych: appropriate affect, appropriate insight DS: Data Data Completed and Pending Labs on day of discharge: Laboratory Results - last 24 hr 11/13/21 11/14/21 11/14/21 13:15 05:44 05:44 WBC 6.2 RBC 4.51 L Hgb 14.2 Hct 42.4 MCV 94.0 MCH 31.5 MCHC 33.5 RDW 11.6 Plt Count 274 MPV 9.5 Absolute Nucleated RBC 0.000 Nucleated RBC % (auto) 0.0 Sodium 138 Potassium 4.3 Chloride 102 Carbon Dioxide 28 Anion Gap 12 BUN 9 Creatinine 0.86 Estim Creat Clear Calc 112.1 Estimated GFR > 60 POC Glucose Fasting Glucose 106 H Estimat Average Glucose Hemoglobin A1c % Calcium 9.2 D Triglycerides 109 Cholesterol 193 LDL Cholesterol, Calc 121 HDL Cholesterol 51 Urine RBC 10-14 H Urine WBC 0 Ur Squamous Epith Cells NONE Urine Bacteria NONE 11/14/21 11/14/21 05:44 07:27 WBC RBC Hgb Hct MCV MCH MCHC RDW Plt Count MPV Absolute Nucleated RBC Nucleated RBC % (auto) Sodium Potassium Chloride Carbon Dioxide Anion Gap BUN Creatinine Estim Creat Clear Calc Estimated GFR POC Glucose 124 H Fasting Glucose Estimat Average Glucose 94 Hemoglobin A1c % 4.9 Calcium Triglycerides Cholesterol LDL Cholesterol, Calc HDL Cholesterol Urine RBC Urine WBC Ur Squamous Epith Cells Urine Bacteria Discharge Plan Discharge Patient Disposition: Home, Self-Care Discharge Diagnosis: renal colic Referrals: Abiola Wilkins, PERSONNEL GENERALIST MANAGER [Primary Care Provider] - 1 Week Discharge Medications: No Action No Known Home Meds 0RF Discharge Orders: Discharge Order (Routine); Ordered 11/14/21 Ordered By: Jus Smith Diet: low salt diet Activity on Discharge: As tolerated Stand Alone Forms: Patient Portal Discharge page Care Plan Goals: avoid further stones, weight loss Health Concerns: fatty liver, obesity, kidney stone Plan of Treatment: drink fluid to maintain about 2L urine per day, avoid ETOH, try to continue to lose weight Assessment: see above
[2021-11-15 08:07] LABS: HBc Num1 0.08 S/CO (0.00-0.79); HBsAGNum1 0.22 S/CO (0.00-0.99); Hepatitis B Core Antibody Nonreactive (Nonreactive); Hepatitis B Surface Antigen Negative (Negative); ~Hepatitis B Surface Antibody NONREACTIVE (Nonreactive)
[2021-11-15 08:08] LABS: ~HepC Num1 0.13 S/CO (0.00-0.79); ~Hepatitis C Antibody Nonreactive (Nonreactive)
== END 2021-11-14 15:17 | disposition home or self-care (01) | DRG 694 ==
LOC: HO.ED 13:12 → HO.EDOVER 13:53 → HO.S3 14:10
PROVIDERS: Physician Assistant; Admitting Provider Internal Medicine; Emergency Provider Emergency Medicine; PCP Nurse Practitioner Acute Care; Visit Provider Internal Medicine
DX: N13.2 Hydronephrosis with renal and ureteral calculous obstruction (principal); Z68.41 Body mass index [BMI] 40.0-44.9, adult; I10 Essential (primary) hypertension; Z20.822 Contact with and (suspected) exposure to COVID-19; E66.01 Morbid (severe) obesity due to excess calories; F10.20 Alcohol dependence, uncomplicated; K75.81 Nonalcoholic steatohepatitis (NASH); K70.0 Alcoholic fatty liver; Z87.442 Personal history of urinary calculi
CPT/HCPCS: 36415; 76775; 80048; 80061; 80076; 81001; 82947; 83036; 83735; 85025; 85027; 86704; 86706; 86803; 87340; 87635; 96361; 96374; 96375; 96376; 99218; 99285; 99291; J0696; J1170; J1650; J1885; J2270; J2405

== ENCOUNTER 2022-12-04 10:40 | Outpatient (REF) | payer MEDICAID, SELFPAY ==
[2022-12-04 13:37] LABS: MANUAL DIFF FLAG NO
[2022-12-04 13:51] LABS: Basophils Absolute Auto 0.1 X10*3/uL (0.0-0.2); Basophils Percent Auto 0.8 % (0-2); Eosinophils Absolute Auto 0.4 X10*3/uL (0.0-0.4); Eosinophils Percent Auto 5.6 % (0-4); Hematocrit 45.7 % (42.0-52.0); Hemoglobin 15.5 g/dl (14.0-18.0); Imm Gran Abs Auto 0.01 X10*3/uL (0.00-0.03); Imm Gran Pct Auto 0.2 % (0.0-0.4); Lymphocytes Percent Auto 32.6 % (20-40); Mean Corpuscular HGB Conc 33.9 g/dl (31.0-36.0); Mean Corpuscular Hemoglobin 31.3 pg (27.0-33.0); Mean Corpuscular Volume 92.1 fL (80.0-98.0); Mean Platelet Volume 9.8 fL (9.4-12.4); Monocytes Absolute Auto 0.6 X10*3/uL (0.1-1.2); Monocytes Percent Auto 9.1 % (2-11); Neutrophils Absolute Auto 3.2 x10*3/uL (2.0-8.3); Neutrophils Percent Auto 51.7 % (45-73); Platelet Count 312 X10*3/uL (160-400); Red Blood Count 4.96 X10*6/uL (4.60-5.80); Red Cell Distribution Width 11.2 % (11.0-16.0); White Blood Count 6.2 X10*3/uL (4.8-10.8)
[2022-12-04 13:58] LABS: Alanine Aminotransferase 40 U/L (0-40); Albumin Level 4.2 g/dL (3.5-5.0); Alkaline Phosphatase 86 U/L (39-117); Anion Gap 13 (12-20); Aspartate Amino Transferase 35 U/L (5-37); Bilirubin Total 1.4 mg/dL (0.0-1.0); Blood Urea Nitrogen 15 mg/dL (9-16); Calcium 9.4 mg/dL (8.4-10.2); Carbon Dioxide 28 mmol/L (22-29); Chloride 101 mmol/L (96-108); Cholesterol 215 mg/dL; Estimated Glomerular Filt Rate > 60; Glucose Fasting 104 mg/dL (60-99); HDL Cholesterol 54 mg/dL; LDL Cholesterol Calculated 127 mg/dl; Potassium 4.3 mmol/L (3.3-5.1); Sodium 138 mmol/L (135-145); Total Protein 7.3 g/dL (6.5-8.0); Triglycerides 172 mg/dL
[2022-12-04 14:14] LABS: Thyroid Stimulating Hormone 2.96 uIU/mL (0.32-4.0)
== END 2022-12-04 10:41 | disposition home or self-care (01) ==
LOC: HO.10HDL 10:40
PROVIDERS: Visit Provider Internal Medicine
DX: Z00.01 Encounter for general adult medical examination with abnormal findings (principal); Z12.5 Encounter for screening for malignant neoplasm of prostate; M51.16 Intervertebral disc disorders with radiculopathy, lumbar region; E66.9 Obesity, unspecified; I10 Essential (primary) hypertension
CPT/HCPCS: 36415; 80053; 80061; 84153; 84443; 85025

== ENCOUNTER 2023-01-02 13:00 | Outpatient (RCR) | payer MEDICAID, SELFPAY ==
--- NOTE | 2022-12-03 13:48 | MHC.PT.EP ---
[facility] [place] Office [place] Office [place] Office [address] Sabrina Reed [address] [phone] F: [phone] F: [phone] F: [phone] F: [phone] Physical Therapy Plan of Care Date of Evaluation: Date of Surgery: Diagnosis: LBP Assessment: 62 YO MALE REF TO PT FOR LEFT LBP W RADIC SXS INTO MID THIGH SINCE OCTOBER 2022 AFTER PROLONGED LIFTING/ CARRYING AT WORK (HE WORKS FULL-TIME , 10 HR SHIFTS AT HOME [facility] [employer]) THE Pt CURRENTLY HAS A 15 LB LIFTING RESTRICTION. OBJECTIVELY, Pt HAS DECR HIP FLEXIB, LIMITED TRUNK AROM, (+) SOFT TISSUE IRRIT BC THORACOLUMB PS MM, (+) WILBERT TEST BC; DECR POSTURAL AWARENESS, AND Lt > Rt LS PAIN. THE Pt WOULD BENEFIT FROM PT FOR HIS LUMBAR RADICULOPATHY WITH RESTRICTED MOB BC HIPS-> ADDRESSING THE ABOVE FINDINGS, BODY MECH ED AND SIMUL FOR WORK SITE TASKS TO REDUCE THE RISK OF REINJURY UPON RESUMPTION OF REGULAR DUTY WORK. Frequency and Duration: The patient will be seen 2 x WK x 5 WKS Short Term Goals: *Pt INDEP W SELF-CORRECT POSTURE AND DEMON IMPROVED, MORE EFFICIENT BODY MECH W SIMUL ADLs/ WORK TASKS *DECR LBP TO 2-3/10 W REG ADLs/ WORK *IMPROVE HIP FLEXIBILITY AND TRUNK AROM * INTIATE HEP Jail Goals: *Pt WILL IMPROVE LUMBOPELVIC/ LEs STRENGTH TO AT LEAST 5-/5 *Pt RESUME REG ADLs AND FITNESS ROUTINE EVIDENT W IMPROVED OSWESTRY SCORE (AT EVAL 50 ) *Pt INDEP W PROGR HEP AND SELF-SX MGMT TECHN Treatment Plan: Modalities to reduce pain, spasms and effusion. Manual therapy to restore motion and function. Therapeutic exercise to improve strength and flexibility. Neuromuscular re-education for posture and balance. Therapeutic activities to return to functional activities of daily living. Electronically signed by: ADIA GARCÍA,PT Please sign and return to therapist. Thank you for your referral.
== END 2023-02-05 09:13 | disposition home or self-care (01) ==
LOC: HO.PT 13:00
PROVIDERS: PCP Internal Medicine; Visit Provider Internal Medicine
DX: M54.50 Low back pain, unspecified (principal)
CPT/HCPCS: 97110; 97140; 97162; 97530

== ENCOUNTER 2023-03-28 09:10 | Outpatient (REF) | payer MEDICAID, SELFPAY ==
[2023-03-28 10:42] LABS: Amphetamine Screen Urine Not Detected (Not Detect); Barbiturates, Urine Not Detected (Not Detect); Benzodiazepines Screen Urine Not Detected (Not Detect); Cannabinoid Screen Urine Not Detected (Not Detect); Cocaine Screen Urine Not Detected (Not Detect); Fentanyl, urine Not Detected (Not Detect); Opiate Screen Urine Not Detected (Not Detect); Phencyclidine Screen Urine Not Detected (Not Detect)
== END 2023-03-28 09:11 | disposition home or self-care (01) ==
LOC: HO.LAB 09:10
PROVIDERS: PCP Internal Medicine; Visit Provider Internal Medicine
DX: E78.00 Pure hypercholesterolemia, unspecified (principal); I10 Essential (primary) hypertension; R63.5 Abnormal weight gain; Z91.198 Patient's noncompliance with other medical treatment and regimen for other reason
CPT/HCPCS: 80307